=== PATIENT | male | born 1955 | race Caucasian/White ===

== ENCOUNTER 2017-12-18 20:25 | Emergency (ER) | payer MEDICAID, OTHER ==
[~2017-12-18] VITALS: Ht 167.6 cm; Wt 81.6 kg
--- NOTE | 2017-12-18 20:39 | NUR ---
PT AMBULATORY TO ER BED 9. BIBSELF C/O ABD PAIN WITH NAUSEA X 2 DAYS. DENIES V/D. PT PLACED IN GOWN AND ON MANAGER OF HOSPITAL. VSS/RESP EVEN UNLABORED/NAD NOTED/SKIN WARM AND DRY/AFEBRILE/AOX4. AWAITNG MD VORA.
--- NOTE | 2017-12-18 21:17 | NUR ---
URINE SPECIMEN OBTAINED AND SENT TO THE LAB.
[2017-12-18 21:19] LABS: BASOPHILS # (AUTO) 0.1 /CMM (0.0-0.2); BASOPHILS % (AUTO) 0.9 % (0.0-2.0); EOSINOPHILS % (AUTO) 1.7 % (0.0-6.0); HEMATOCRIT 47 % (39-51); HEMOGLOBIN 15.6 g/dL (13.5-17.5); LYMPHOCYTES # (AUTO) 4.5 /CMM (0.8-4.8); LYMPHOCYTES % (AUTO) 42.8 % (20.0-44.0); MEAN CORPUSCULAR HGB CONC 33 g/dl (31.0-36.0); MEAN CORPUSCULAR VOLUME 93 fL (80-96); MONOCYTES # (AUTO) 0.9 /CMM (0.1-1.30); MONOCYTES % (AUTO) 8.5 % (2.0-12.0); NEUTROPHILS # (AUTO) 4.8 /CMM (1.8-8.9); NEUTROPHILS % (AUTO) 46.1 % (43.0-81.0); PLATELET COUNT (AUTO) 225 /CMM (150-450); RED BLOOD CELL COUNT(AUTO) 5.08 MIL/uL (4.5-6.0); WHITE BLOOD COUNT (AUTO) 10.5 K/uL (4.3-11.0)
[2017-12-18 21:22] LABS: APPEARANCE,URINE Clear (CLEAR); BILIRUBIN,URINE Negative (NEGATIVE); BLOOD, URINE Moderate Ery/uL (NEGATIVE); COLOR,URINE Yellow (YELLOW); KETONES,URINE Trace (NEGATIVE); LEUKOCYTE ESTERASE ,URINE Negative (NEGATIVE); NITRITE, URINE Negative (NEGATIVE); PH,URINE 5.5 (5.0-8.0); PROTEIN,URINE 100 mg/dl (NEGATIVE); UGLUCOSE Negative (NEGATIVE); UROBILINOGEN,URINE 0.2 EU/dL (0.2)
[2017-12-18 21:26] LABS: CALCIUM, SERUM 8.9 mg/dL (8.5-10.1); CREATININE 0.7 mg/dL (0.6-1.3); POTASSIUM 4.1 mmol/L (3.5-5.1)
[2017-12-18 21:32] LABS: BACTERIA,URINE Few /HPF (None Seen); SQUAMOUS EPITHELIAL CELL,UR Few /HPF (None Seen); WBC,URINE 0-2 /HPF (0-3)
[2017-12-18 21:33] LABS: MUCUS,URINE Few /LPF (None Seen)
[2017-12-18 21:38] LABS: ALBUMIN 3.7 g/dL (3.4-5.0); BILIRUBIN,TOTAL 0.3 mg/dL (0.2-1.0); TOTAL PROTEIN, SERUM 3.6 g/dL (6.4-8.2)
[2017-12-18] MEDS ORDERED: MAG HYDROX/AL HYDROX/SIMETH 30 ML UDC ONE (22:14)
[2017-12-18] MEDS ORDERED: LIDOCAINE VISCOUS 2% UD 15 ML UDC ONE (22:14)
[2017-12-18] MEDS ORDERED: LIDOCAINE VISCOUS 2% UD 15 ML UDC MM ONE (22:30)
[2017-12-18] MEDS ORDERED: MAG HYDROX/AL HYDROX/SIMETH 30 ML UDC PO ONE (22:30)
--- NOTE | 2017-12-18 22:57 | NUR ---
Patient discharged to home in stable condition. Written and verbal after care instructions given. Patient verbalizes understanding of instruction. Patient ambulatory with a steady gait.
[2017-12-18 22:58] VITALS: BP 156/91
== END 2017-12-18 22:58 | disposition home or self-care (01) ==
LOC: ER 20:30
DX: K85.90 Acute pancreatitis without necrosis or infection, unspecified (principal); I10 Essential (primary) hypertension; J45.909 Unspecified asthma, uncomplicated; E11.9 Type 2 diabetes mellitus without complications; F17.210 Nicotine dependence, cigarettes, uncomplicated; Z98.890 Other specified postprocedural states
CPT/HCPCS: 36415; 76700-TC; 80048-TC; 80076-TC; 81000-TC; 83690-TC; 85025-TC; A4606; Z7610

== ENCOUNTER 2019-08-22 07:29 | Emergency (ER) | payer MEDICARE, OTHER ==
[~2019-08-22] VITALS: Ht 167.6 cm; Wt 84.4 kg
--- NOTE | 2019-08-22 07:38 | NUR ---
DR BLACKWELL AT BEDSIDE FOR EVAL
--- NOTE | 2019-08-22 07:41 | NUR ---
MIGDALIA RN,[facility] CALLED TO INTERPRET FOR MD
[2019-08-22] MEDS ORDERED: PHENYLEPHRINE 0.5% NASAL SPRAY 15 ML BOTTLE NS ONE (07:48)
--- NOTE | 2019-08-22 07:50 | NUR ---
patient came in to the er c/o on and off nosebleed. On room air, breathing evenly and unlabored. kept comfortable, will continue to monitor accordingly.
[2019-08-22 07:58] VITALS: BP 135/80
--- NOTE | 2019-08-22 07:58 | NUR ---
Patient discharged to home in stable condition. Written and verbal after care instructions given. Patient verbalizes understanding of instruction.
[2019-08-22] MEDS ORDERED: PHENYLEPHRINE HCL NASAL SPRAY 15 ML BOTTLE NS ONE (08:00)
== END 2019-08-22 07:58 | disposition home or self-care (01) ==
LOC: ER 07:32
DX: R04.0 Epistaxis (principal); T50.905A Adverse effect of unspecified drugs, medicaments and biological substances, initial encounter; I10 Essential (primary) hypertension; J45.909 Unspecified asthma, uncomplicated; E11.9 Type 2 diabetes mellitus without complications; E78.00 Pure hypercholesterolemia, unspecified; F17.200 Nicotine dependence, unspecified, uncomplicated; Z98.890 Other specified postprocedural states; Y92.89 Other specified places as the place of occurrence of the external cause

== ENCOUNTER 2019-08-22 18:41 | Emergency (ER) | payer MEDICARE, OTHER ==
[~2019-08-22] VITALS: Ht 167.6 cm; Wt 84.4 kg
[2019-08-22 19:02] VITALS: BP 111/68
--- NOTE | 2019-08-22 19:12 | NUR ---
PT REFUSED NASAL SPRAY.
[2019-08-22 19:51] LABS: BASOPHILS # (AUTO) 0.1 /CMM (0.0-0.2); BASOPHILS % (AUTO) 0.6 % (0.0-2.0); EOSINOPHILS % (AUTO) 1.3 % (0.0-6.0); HEMATOCRIT 40 % (39-51); HEMOGLOBIN 13.5 g/dL (13.5-17.5); LYMPHOCYTES # (AUTO) 4.2 /CMM (0.8-4.8); LYMPHOCYTES % (AUTO) 38.8 % (20.0-44.0); MEAN CORPUSCULAR HGB CONC 34 g/dl (31.0-36.0); MEAN CORPUSCULAR VOLUME 93 fL (80-96); MONOCYTES # (AUTO) 0.8 /CMM (0.1-1.30); MONOCYTES % (AUTO) 7.1 % (2.0-12.0); NEUTROPHILS # (AUTO) 5.6 /CMM (1.8-8.9); NEUTROPHILS % (AUTO) 52.2 % (43.0-81.0); PLATELET COUNT (AUTO) 199 /CMM (150-450); RED BLOOD CELL COUNT(AUTO) 4.26 MIL/uL (4.5-6.0); WHITE BLOOD COUNT (AUTO) 10.7 K/uL (4.3-11.0)
[2019-08-22] MEDS ORDERED: OXYMETAZOLINE HCL NASAL SPRAY 30 ML BOTTLE NS ONE (20:00)
== END 2019-08-22 20:50 | disposition home or self-care (01) ==
LOC: ER 18:50
DX: R04.0 Epistaxis (principal); I10 Essential (primary) hypertension; E11.9 Type 2 diabetes mellitus without complications; J45.909 Unspecified asthma, uncomplicated; F17.210 Nicotine dependence, cigarettes, uncomplicated; Z95.828 Presence of other vascular implants and grafts
CPT/HCPCS: 36415; 85025-TC; 85730-TC

== ENCOUNTER 2023-01-05 07:23 | Inpatient (IN) | payer MEDICARE, OTHER ==
[~2023-01-05] VITALS: Ht 167.6 cm; Wt 78.9 kg
[2023-01-05 08:26] LABS: BASOPHILS # (AUTO) 0.1 K/uL (0.0-0.2); BASOPHILS % (AUTO) 0.6 % (0.0-2.0); EOSINOPHILS # (AUTO) 0.1 K/uL (0.0-0.7); EOSINOPHILS % (AUTO) 1.1 % (0.0-6.0); HEMATOCRIT 42 % (39-51); LYMPHOCYTES % (AUTO) 27.2 % (20.0-44.0); MEAN CORPUSCULAR HEMOGLOBIN 30 PG (26.0-33.0); MEAN CORPUSCULAR HGB CONC 33 g/dl (31.0-36.0); MEAN CORPUSCULAR VOLUME 91 fL (80-96); MONOCYTES % (AUTO) 9.1 % (2.0-12.0); NEUTROPHILS # (AUTO) 6.8 K/uL (1.8-8.9); PLATELET COUNT (AUTO) 208 K/uL (150-450); RED BLOOD CELL COUNT(AUTO) 4.66 MIL/uL (4.5-6.0); RED CELL DISTRIBUTION WIDTH 13.6 % (11.5-15.0)
[2023-01-05 08:34] LABS: CALCIUM, SERUM 9.4 mg/dL (8.5-10.1); CREATININE 0.8 mg/dL (0.6-1.3); POTASSIUM 3.8 mmol/L (3.5-5.1)
[2023-01-05 08:47] LABS: INR 1.08 (0.91-1.10); PARTIAL THROMBOPLASTIN TIME 32.5 SEC (24.3-34.3); PROTHROMBIN TIME 11.4 SECS (9.2-11.1)
[2023-01-05] MEDS ORDERED: CT SWABBABLE VALVE TRANS SET 1 EA INFUS.SET MC ONE (08:53)
[2023-01-05] MEDS ORDERED: IOHEXOL-300 100 ML VIAL IV ONE (08:53)
[2023-01-05] MEDS ORDERED: IV NS 0.9% 250 ML IV ONE (08:54)
[2023-01-05] MEDS ORDERED: PIPERACILLIN /TAZOBACTAM 3.375 G in IV D5W 50 ML IV ONE (10:00)
[2023-01-05] MEDS ORDERED: EMPA10TA PO (10:18)
[2023-01-05] MEDS ORDERED: METF-440 PO (10:18)
[2023-01-05] MEDS ORDERED: CHOL500052 PO (10:18)
[2023-01-05] MEDS ORDERED: TAMS-12 PO (10:18)
[2023-01-05] MEDS ORDERED: CARV3.12 PO (10:18)
[2023-01-05] MEDS ORDERED: CLOP75TA15 PO (10:18)
[2023-01-05] MEDS ORDERED: PANT40TA2 PO (10:18)
[2023-01-05] MEDS ORDERED: BENA20TA9 PO (10:18)
[2023-01-05] MEDS ORDERED: ROSU10TA2 PO (10:18)
[2023-01-05] MEDS ORDERED: PIPERACI/TAZO 3.375GM/D5W 50ML PB IV ONE (10:59)
[2023-01-05] MEDS ORDERED: Z GUARD REMEDY 4 OZ OINT TP PRN (11:30)
[2023-01-05] MEDS ORDERED: MORPHINE SULFATE INJ 2 MG/ML DISP.SYRIN IV PRN (11:30)
[2023-01-05] MEDS ORDERED: ACETAMINOPHEN 325 MG TABLET PO PRN (11:30)
[2023-01-05] MEDS ORDERED: ZOLPIDEM TARTRATE 5 MG TABLET PO PRN (11:30)
[2023-01-05] MEDS ORDERED: MAG HYDROX/AL HYDROX/SIMETH 30 ML UDC PO PRN (11:30)
[2023-01-05] MEDS ORDERED: MAGNESIUM HYDROXIDE 30 ML UDC PO PRN (11:30)
[2023-01-05] MEDS ORDERED: ONDANSETRON HCL/PF 4 MG/2 ML VIAL IVP PRN (11:30)
[2023-01-05] MEDS ORDERED: HYDROCODONE/APAP 5/325MG TABLET PO PRN (11:30)
[2023-01-05 12:00] VITALS: BP 129/68; TEMP 97.9; O2SAT 98
[2023-01-05] MEDS: ZOSYN IVPB 3.375 G in IV D5W 50ml IV SCH ×2 (15:16→22:35)
[2023-01-05 16:00] VITALS: BP 116/72; TEMP 97.9; O2SAT 98
[2023-01-05] MEDS ORDERED: INSULIN REGULAR, HUMAN 100 UNIT/ML 3 ML VIAL SQ PRN (19:00)
[2023-01-05] MEDS ORDERED: *INSULIN REGULAR(HUMULIN R)HUM 100 UNIT/ML VIAL SQ PRN (19:00)
[2023-01-05] MEDS ORDERED: DEXTROSE 50%-WATER 50 ML DISP.SYRIN IV PRN (19:00)
[2023-01-05] MEDS ORDERED: ATORVASTATIN 10 MG TABLET PO SCH (22:00)
[2023-01-05] MEDS: BLOOD SUGAR DIAGNOSTIC 1 EACH STRIP VI SCH (22:53)
[2023-01-06 00:11] VITALS: BP 117/63; TEMP 99; O2SAT 93
[2023-01-06] MEDS: ZOSYN IVPB 3.375 G in IV D5W 50ml IV SCH ×2 (04:12→09:03)
[2023-01-06 07:24] LABS: CALCIUM, SERUM 9.3 mg/dL (8.5-10.1); PHOSPHORUS 3.4 mg/dL (2.5-4.9)
[2023-01-06] MEDS ORDERED: PANTOPRAZOLE 40 MG TABLET.DR PO SCH (07:30)
[2023-01-06 07:43] LABS: BASOPHILS # (AUTO) 0.1 K/uL (0.0-0.2); BASOPHILS % (AUTO) 0.5 % (0.0-2.0); EOSINOPHILS # (AUTO) 0.1 K/uL (0.0-0.7); EOSINOPHILS % (AUTO) 0.9 % (0.0-6.0); HEMATOCRIT 43 % (39-51); LYMPHOCYTES # (AUTO) 3.4 K/uL (0.8-4.8); MEAN CORPUSCULAR HEMOGLOBIN 30 PG (26.0-33.0); MEAN CORPUSCULAR HGB CONC 33 g/dl (31.0-36.0); MEAN CORPUSCULAR VOLUME 92 fL (80-96); MONOCYTES # (AUTO) 1.1 K/uL (0.1-1.30); MONOCYTES % (AUTO) 8.4 % (2.0-12.0); NEUTROPHILS % (AUTO) 63.2 % (43.0-81.0); PLATELET COUNT (AUTO) 225 K/uL (150-450); RED BLOOD CELL COUNT(AUTO) 4.61 MIL/uL (4.5-6.0); RED CELL DISTRIBUTION WIDTH 13.4 % (11.5-15.0); WHITE BLOOD COUNT (AUTO) 12.7 K/uL (4.3-11.0)
[2023-01-06] MEDS: BLOOD SUGAR DIAGNOSTIC 1 EACH STRIP VI SCH ×2 (08:14→11:31)
[2023-01-06 08:57] VITALS: BP 130/75; TEMP 98.1; O2SAT 93
[2023-01-06] MEDS ORDERED: CARVEDILOL 3.125 MG TABLET PO SCH (09:00)
[2023-01-06] MEDS ORDERED: CLOPIDOGREL BISULFATE 75 MG TABLET PO SCH (09:00)
[2023-01-06] MEDS ORDERED: Medication Not On Formulary EA (Empagliflozin (Jardiance) 10 MG) PO SCH (09:00)
[2023-01-06] MEDS ORDERED: BENAZEPRIL HCL 20 MG TABLET PO SCH (09:00)
[2023-01-06] MEDS ORDERED: TAMSULOSIN 0.4 MG CAP.SR.24H PO SCH (09:00)
[2023-01-07] MEDS ORDERED: ERGOCALCIFEROL (VITAMIN D 2) 50,000 UNIT CAPSULE GT SCH (09:00)
== END 2023-01-06 12:31 | disposition home or self-care (01) | DRG 394 ==
LOC: ER 07:29 → MEDSG1 11:25
PROVIDERS: ADMIT Student in an Organized Health Care Education/Training Program; ATTEND Nurse Practitioner Acute Care
DX: K64.4 Residual hemorrhoidal skin tags (principal); K61.0 Anal abscess; I10 Essential (primary) hypertension; C21.0 Malignant neoplasm of anus, unspecified; J45.909 Unspecified asthma, uncomplicated; E11.9 Type 2 diabetes mellitus without complications; E78.5 Hyperlipidemia, unspecified; Z79.84 Long term (current) use of oral hypoglycemic drugs; Z87.11 Personal history of peptic ulcer disease; Z87.891 Personal history of nicotine dependence
CPT/HCPCS: 36415; 72193-TC; 80048-TC; 82962-TC; 83735-TC; 84100-TC; 85025-TC; 85730-TC; A4223; G0378; J1815; J2543; J7040; J7050; J7060; Q9967

== ENCOUNTER 2023-10-31 15:49 | Inpatient (IN) | payer MEDICARE, OTHER ==
[~2023-10-31] VITALS: Ht 172.7 cm; Wt 78.9 kg
[~2023-10-31 15:49] MED LIST: BENA20TA9 PO; CARV3.12 PO; CHOL500052 PO; CLOP75TA15 PO; EMPA10TA PO; METF-440 PO; PANT40TA2 PO; ROSU10TA2 PO; TAMS-12 PO
--- NOTE | 2023-10-31 16:20 | NUR ---
RECEIVED PT 68 YRS MALE WAKING IN FROM HOME C/O DIZZNESS AND WEEKNESS ON RT SIDE AND RESOVE DINESS ANY WEEKNESS
--- NOTE | 2023-10-31 16:30 | NUR ---
SEEN BY DR. BALTAZAR
[2023-10-31 16:33] LABS: BASOPHILS # (AUTO) 0.1 K/uL (0.0-0.2); BASOPHILS % (AUTO) 0.9 % (0.0-2.0); EOSINOPHILS # (AUTO) 0.2 K/uL (0.0-0.7); EOSINOPHILS % (AUTO) 1.9 % (0.0-6.0); HEMATOCRIT 41 % (39-51); HEMOGLOBIN 13.6 g/dL (13.5-17.5); LYMPHOCYTES % (AUTO) 33.7 % (20.0-44.0); MEAN CORPUSCULAR HEMOGLOBIN 31 PG (26.0-33.0); MEAN CORPUSCULAR HGB CONC 34 g/dl (31.0-36.0); MEAN CORPUSCULAR VOLUME 91 fL (80-96); MONOCYTES # (AUTO) 0.7 K/uL (0.1-1.30); MONOCYTES % (AUTO) 7.6 % (2.0-12.0); NEUTROPHILS # (AUTO) 4.9 K/uL (1.8-8.9); NEUTROPHILS % (AUTO) 55.9 % (43.0-81.0); PLATELET COUNT (AUTO) 191 K/uL (150-450); RED BLOOD CELL COUNT(AUTO) 4.43 MIL/uL (4.5-6.0); RED CELL DISTRIBUTION WIDTH 14.3 % (11.5-15.0); WHITE BLOOD COUNT (AUTO) 8.8 K/uL (4.3-11.0)
[2023-10-31 16:41] LABS: MAGNESIUM 1.5 mg/dL (1.8-2.4)
[2023-10-31 16:42] LABS: CARBON DIOXIDE 25 mmol/L (21-32); CHLORIDE 103 mmol/L (98-107); CREATININE 0.8 mg/dL (0.6-1.3); GLUCOSE 186 mg/dL (74-106); POTASSIUM 4.2 mmol/L (3.5-5.1); SODIUM SERUM 137 mmol/L (136-145); UREA NITROGEN, BLOOD 11 mg/dL (7-18)
--- NOTE | 2023-10-31 16:45 | NUR ---
BLOOD DROW BY DR. BALTAZAR
[2023-10-31 16:48] LABS: ALANINE AMINOTRANSFERASE 23 U/L (12-78); ALBUMIN 3.4 g/dL (3.4-5.0); ALKALINE PHOSPHATASE 63 U/L (46-116); ASPARTATE AMINOTRANSFERASE 10 U/L (15-37); BILIRUBIN,DIRECT 0.1 mg/dL (0.0-0.2); BILIRUBIN,TOTAL 0.4 mg/dL (0.2-1.0); TOTAL PROTEIN, SERUM 7.3 g/dL (6.4-8.2)
--- NOTE | 2023-10-31 16:55 | NUR ---
18g Established in the LAC
[2023-10-31 16:58] LABS: THYROID STIMULATING HORMONE 0.53 uIU/mL (0.358-3.74)
[2023-10-31 17:26] LABS: INR 1.08 (0.91-1.10); PROTHROMBIN TIME 11.4 SECS (9.2-11.1)
--- NOTE | 2023-10-31 17:33 | NUR ---
MOVE SHEET SUBMITTED & CALLED FOR BED.
--- NOTE | 2023-10-31 18:10 | NUR ---
TO ORLANDO BAUTISTA
[2023-10-31] MEDS ORDERED: CT SWABBABLE VALVE TRANS SET 1 EA INFUS.SET MC ONE (18:16)
[2023-10-31] MEDS ORDERED: IOHEXOL-350 100 ML VIAL IV ONE (18:16)
[2023-10-31] MEDS ORDERED: IV NS 0.9% 250 ML IV ONE (18:16)
--- NOTE | 2023-10-31 18:36 | NUR ---
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
[2023-10-31] MEDS ORDERED: HYDROCODONE/APAP 5/325MG TABLET PO PRN (19:00)
[2023-10-31] MEDS ORDERED: DEXTROSE 50%-WATER 50 ML DISP.SYRIN IV PRN (19:00)
--- NOTE | 2023-10-31 19:00 | NUR ---
UA SENT TO LAB
[2023-10-31 19:22] LABS: AMPHETAMINE, URINE NEGATIVE (NEGATIVE); BARBITURATE, URINE NEGATIVE (NEGATIVE); BENZODIAZEPINE, URINE NEGATIVE (NEGATIVE); CANNABINOID, URINE NEGATIVE (NEGATIVE); COCCAINE, URINE NEGATIVE (NEGATIVE); OPIATE, URINE NEGATIVE (NEGATIVE); PHENCYCLIDINE SCREEN,URINE NEGATIVE (NEGATIVE)
[2023-10-31] MEDS ORDERED: ENOXAPARIN SODIUM 40 MG/0.4 ML DISP.SYRIN SQ ONE (19:28)
[2023-10-31] MEDS: ENOXAPARIN SODIUM 40 MG/0.4 ML DISP.SYRIN SQ SCH (19:31)
--- NOTE | 2023-10-31 19:38 | NUR ---
HAND OFF MARTY RN
[2023-10-31 19:44] LABS: APPEARANCE,URINE CLEAR (CLEAR); COLOR,URINE YELLOW (YELLOW)
[2023-10-31 19:45] LABS: BILIRUBIN,URINE NEGATIVE (NEGATIVE); BLOOD, URINE NEGATIVE Ery/uL (NEGATIVE); KETONES,URINE NEGATIVE (NEGATIVE); NITRITE, URINE NEGATIVE (NEGATIVE); UGLUCOSE >=2000 MG/DL mg/dL (NEGATIVE); UROBILINOGEN,URINE 0.2 EU/dL (0.2)
[2023-10-31 19:46] LABS: ADD URINE CULTURE NO; BACTERIA,URINE None seen /HPF (None Seen); LEUKOCYTE ESTERASE ,URINE NEGATIVE (NEGATIVE); RBC,URINE 0-2 /HPF (0-2); WBC,URINE 0-2 /HPF (0-3)
[2023-10-31 19:47] LABS: PROTEIN,URINE 1+ mg/dl (NEGATIVE); YEAST,URINE Few /HPF (None Seen)
--- NOTE | 2023-10-31 19:56 | NUR ---
REPORT GIVEN TO JIM BAILEY FOR S[facility]AGE
[2023-10-31 20:10] VITALS: BP 133/65; TEMP 97.9; O2SAT 96
--- NOTE | 2023-10-31 20:13 | NUR ---
pt transported to [facility] via gurney with acls protocol.
--- NOTE | 2023-10-31 20:15 | NUR ---
DETECTIVE AUTOMOBILE SECTIONSEAT MENDER NOTES; RECEIVED PATIENT FROM ER VIA [facility] WITH HIS SISTER. REPORT GIVEN BY LEO FERGUSON. PATIENT IS A/O X4, ABLE TO MAKE NEEDS KNOWN. PATIENT ORIENTED TO ROOM AND SHOW HIM HOW TO USE CALL LIGHT. ON ROOM AIR, TOLERATING WELL BREATHES EVENLY AND UNLABORED. NO SOB/ NOR S/SX OF ACUTE DISTRESS AT THIS TIME. ALL BELONGINGS ACCOUNTED FOR, BELONGING SHEET SIGNED. IV ACCESS ON LAC #18G-SL, INTACT AND PATENT. VS TAKEN FOLLOWS; BP 133/65, CT 62, RR 18, TEMP 97.6, SPO2 96%. SKIN WERE INTACT, NO RASHES, IRRITATION NOR EDEMA NOTED. LUNGS WERE CLEAR BILATERALLY UPON AUSCULTATION. NORMOACTIVE BOWEL SOUNDS. NO COMPLAINTS OF PAIN/DISCOMFORT AT THE MOMENT. MAINTAIN ALL SAFETY MEASURES IN PLACE; BED IN LOWEST AND LOCKED POSITION, BED ALARM ON, SIDE RAILS UPX2, CALL LIGHT AND TABLE TRAY WITHIN EASY REACH. PLAN OF CARE ONGOING.
[2023-10-31] MEDS ORDERED: Magnesium 1GM/D5W 100ML PREMIX 100 ML IV ONE (21:16)
[2023-10-31] MEDS: Magnesium 1GM/D5W 100ML PREMIX PIGGYBACK IV ONE (21:17)
[2023-10-31] MEDS: BLOOD SUGAR DIAGNOSTIC 1 EACH STRIP IN SCH (21:40)
[2023-10-31] MEDS: INSULIN REGULAR, HUMAN 100 UNIT/ML 3 ML VIAL SQ PRN (21:56)
--- NOTE | 2023-10-31 21:57 | NUR ---
RN NOTE; PATIENT REFUSED INSULIN DESPITE DISCUSSING WITH HIM THE RISK AND BENEFITS.
[2023-10-31] MEDS: ATORVASTATIN 40 MG TABLET PO SCH (21:58)
[2023-10-31 23:09] VITALS: BP 133/65; TEMP 97.9; O2SAT 96
[2023-11-01] VITALS: BP 119/69; TEMP 97.7; TEMP 97.9; O2SAT 94; O2SAT 96
[2023-11-01 04:00] VITALS: BP 125/61; TEMP 98.8; O2SAT 100
[2023-11-01 06:03] LABS: BASOPHILS # (AUTO) 0.1 K/uL (0.0-0.2); BASOPHILS % (AUTO) 0.9 % (0.0-2.0); EOSINOPHILS # (AUTO) 0.2 K/uL (0.0-0.7); EOSINOPHILS % (AUTO) 2.5 % (0.0-6.0); HEMATOCRIT 41 % (39-51); HEMOGLOBIN 13.7 g/dL (13.5-17.5); LYMPHOCYTES # (AUTO) 3.6 K/uL (0.8-4.8); LYMPHOCYTES % (AUTO) 42.9 % (20.0-44.0); MEAN CORPUSCULAR HEMOGLOBIN 31 PG (26.0-33.0); MEAN CORPUSCULAR HGB CONC 33 g/dl (31.0-36.0); MEAN CORPUSCULAR VOLUME 91 fL (80-96); MONOCYTES # (AUTO) 0.6 K/uL (0.1-1.30); MONOCYTES % (AUTO) 7.6 % (2.0-12.0); NEUTROPHILS # (AUTO) 3.8 K/uL (1.8-8.9); NEUTROPHILS % (AUTO) 46.1 % (43.0-81.0); PLATELET COUNT (AUTO) 192 K/uL (150-450); RED BLOOD CELL COUNT(AUTO) 4.48 MIL/uL (4.5-6.0); RED CELL DISTRIBUTION WIDTH 13.9 % (11.5-15.0); WHITE BLOOD COUNT (AUTO) 8.3 K/uL (4.3-11.0)
[2023-11-01 06:26] LABS: CALCIUM, SERUM 9.1 mg/dL (8.5-10.1); CREATININE 0.7 mg/dL (0.6-1.3); MAGNESIUM 1.9 mg/dL (1.8-2.4)
[2023-11-01 06:31] LABS: INR 1.08 (0.91-1.10); PARTIAL THROMBOPLASTIN TIME 28.1 SEC (24.3-34.3); PROTHROMBIN TIME 11.4 SECS (9.2-11.1)
--- NOTE | 2023-11-01 06:46 | NUR ---
CRISIS INTERVENTION COUNSELOR CLOSING NOTES; 328-1 LEFT PATIENT RESTING ON BED AWAKE. A/O X4, ABLE TO MAKE NEEDS KNOWN. STABLE THROUGHOUT SHIFT ON RA, TOLERATING WELL @ 100 % SPO2 BREATHES EVENLY AND UNLABORED. NO SOB/ NOR S/SX OF ACUTE DISTRESS AT THIS TIME. IV ACCESS ON LAC #18G-SL, INTACT AND PATENT. ON CONTINUOUS TELE MONITORING WITH CURRENT READING OF SR @ 63 BPM. NO COMPLAINTS OF PAIN/DISCOMFORT AT THE MOMENT. ALL NURSING CARE AND NEEDS ANTICIPATED AND MET, ALL DUE MEDS GIVEN ORDERED. MAINTAIN ALL SAFETY MEASURES IN PLACE; BED IN LOWEST AND LOCKED POSITION, BED ALARM ON, SIDE RAILS UPX2, CALL LIGHT AND TABLE TRAY WITHIN EASY REACH. PLAN OF CARE ONGOING, ENDORSE TO AM SHIFT NURSE FOR S[facility]AGE.
--- NOTE | 2023-11-01 07:29 | NUR ---
OPENING NOTES RECEIVED PATIENT AWAKE ON BED, A/O X4, ABLE TO MAKE NEEDS KNOWN. ON RA, TOLERATING WELL @ 100 % SPO2 BREATHING EVEN AND UNLABORED. NO SOB/ NOR S/SX OF ACUTE DISTRESS AT THIS TIME. IV ACCESS ON LAC #18G-SL, INTACT AND PATENT. ON CONTINUOUS TELE MONITORING WITH CURRENT READING OF SR HR 74 BPM. NO COMPLAINTS OF PAIN/DISCOMFORT AT THE MOMENT. SAFETY MEASURES IN PLACE; BED IN LOWEST AND LOCKED POSITION, BED ALARM ON, SIDE RAILS UPX2, CALL LIGHT AND TABLE TRAY WITHIN EASY REACH. PLAN OF CARE ONGOING
[2023-11-01 07:30] VITALS: BP 136/67; TEMP 97.8; O2SAT 95
[2023-11-01] MEDS ORDERED: METFORMIN 500 MG TABLET PO SCH (09:00)
[2023-11-01] MEDS: NICOTINE PATCH (21MG) 21 MG PATCH.TD24 TD SCH (09:00)
[2023-11-01] MEDS: EMPAGLIFLOZIN 10 MG TABLET PO SCH (09:00)
[2023-11-01] MEDS: CARVEDILOL 3.125 MG TABLET PO SCH (09:24)
[2023-11-01] MEDS: CLOPIDOGREL BISULFATE 75 MG TABLET PO SCH (09:25)
[2023-11-01] MEDS: PANTOPRAZOLE 40 MG TABLET.DR PO SCH (09:25)
[2023-11-01] MEDS: TAMSULOSIN 0.4 MG CAP.SR.24H PO SCH (09:25)
[2023-11-01] MEDS: BENAZEPRIL HCL 20 MG TABLET PO SCH (09:25)
--- NOTE | 2023-11-01 10:30 | NUR ---
RN NOTE PATIENT REFUSED JARDIANCE, EXPLAINED THE BENEFITS OF MEDICATION BUT PATIENT STILL REFUSED, OFFERED 3X. PLAN OF CARE ONGOING
[2023-11-01 10:47] LABS: THYROID STIMULATING HORMONE 0.45 uIU/mL (0.358-3.74)
--- NOTE | 2023-11-01 11:36 | NUR ---
RN NOTE BLOOD SUGAR LEVEL 193 MG/DL, PATIENT REFUSED INSULIN COVERAGE SINCE HE JUST ATE, EDUCATE ABOUT BENEFITS OF MEDICATION, PATIENT STILL REFUSED. PLAN OF CARE ONGOING
[2023-11-01] MEDS: ASPIRIN 81 MG TAB.CHEW PO SCH (12:25)
[2023-11-01 16:00] VITALS: BP 130/67; TEMP 97.5; O2SAT 98
--- NOTE | 2023-11-01 17:00 | NUR ---
RN NOTE BLOOD SUGAR CHECK 171, REFUSED INSLUIN, EDUCATE ABOUT IMPORTANCE OF MEDICATION, PATIENT STILL REFUSED. PLAN OF CARE ONGOING
--- NOTE | 2023-11-01 19:30 | NUR ---
CLOSING NOTES PATIENT AWAKE ON BED, A/O X4, ABLE TO MAKE NEEDS KNOWN. ON RA, TOLERATING WELL @ 100 % SPO2 BREATHING EVEN AND UNLABORED. NO SOB/ NOR S/SX OF ACUTE DISTRESS AT THIS TIME. IV ACCESS ON LAC #18G-SL, INTACT AND PATENT. ON CONTINUOUS TELE MONITORING WITH CURRENT READING OF SR HR 71- 74 BPM. NO COMPLAINTS OF PAIN/DISCOMFORT AT THE MOMENT. SKIN CARE IMPLEMENTED. SAFETY MEASURES IN PLACE; BED IN LOWEST AND LOCKED POSITION, BED ALARM ON, SIDE RAILS UPX2, CALL LIGHT AND TABLE TRAY WITHIN EASY REACH. ENDORSE PLAN OF CARE TO ARCHITECTURE INSTRUCTOR NURSE
--- NOTE | 2023-11-01 19:35 | NUR ---
RN NOTES: RECEIVED PATIENT AWAKE ON BED, A/O X4, ABLE TO MAKE NEEDS KNOWN. ON RA, TOLERATING WELL @ 100 % SPO2 BREATHING EVEN AND UNLABORED. NO SOB/ NOR S/SX OF ACUTE DISTRESS AT THIS TIME. WITH PATENT IV ACCESS ON LAC #18G-SL, ON CONTINUOUS TELE MONITORING WITH CURRENT READING OF SR HR 76 BPM. NO COMPLAINTS OF PAIN/DISCOMFORT AT THE MOMENT. SAFETY MEASURES IN PLACE; BED IN LOWEST AND LOCKED POSITION, BED ALARM ON, SIDE RAILS UPX2, CALL LIGHT AND TABLE TRAY WITHIN EASY REACH. WILL CONTINUE TO MONITOR
[2023-11-01 20:00] VITALS: BP 114/53; TEMP 98.1; O2SAT 96
--- NOTE | 2023-11-01 22:00 | NUR ---
RN NOTES: BLOOD SUGAR CHECKED 161 MG/DL. REFUSED INSULIN. PATIENT EDUCATED ABOUT IMPORTANCE OF MEDICATION. BUT STILL REFUSED. WILL CONTINUE TO MONITOR
[2023-11-02] VITALS: BP 132/64; TEMP 98.2; O2SAT 98
[2023-11-02 04:00] VITALS: BP 127/65; TEMP 97.7; O2SAT 95
--- NOTE | 2023-11-02 06:35 | NUR ---
RN NOTES: BLOOD SUGAR CHECKED 196MG/DL. REFUSED INSULIN. PATIENT EDUCATED ABOUT IMPORTANCE OF MEDICATION. BUT STILL REFUSED. WILL CONTINUE TO MONITOR
--- NOTE | 2023-11-02 06:58 | NUR ---
RN CLOSING NOTES PATIENT ASLEEP ON BED, A/O X4, EASILY AROUSED. ABLE TO MAKE NEEDS KNOWN. ON RA, TOLERATING WELL @ 97% SPO2 BREATHING EVEN AND UNLABORED. NO SOB/ NOR S/SX OF ACUTE DISTRESS AT THIS TIME. WITH PATENT IV ACCESS ON LAC #18G-SL, ON CONTINUOUS TELE MONITORING WITH CURRENT READING OF SR 67 BPM. NO COMPLAINTS OF PAIN/DISCOMFORT AT THE MOMENT. ALL DUE MEDICATIONS GIVEN. KEPT CLEAN AND COMFORTABLE. SAFETY MEASURES IN PLACE; BED IN LOWEST AND LOCKED POSITION, BED ALARM ON, SIDE RAILS UP X 2, CALL LIGHT AND TABLE TRAY WITHIN EASY REACH. WILL ENDORSE TO NEXT SHIFT FOR FURTHER CARE.
--- NOTE | 2023-11-02 07:32 | NUR ---
TELE OPENING NOTES RECEIVED PATIENT AWAKE ON BED, A/O X4, ABLE TO MAKE NEEDS KNOWN. ON ROOM AIR, BREATHING EVEN AND UNLABORED. NO SOB/ NOR S/SX OF ACUTE DISTRESS AT THIS TIME. IV ACCESS ON LAC #18G-SL, INTACT AND PATENT. ON CONTINUOUS TELE MONITORING WITH CURRENT READING OF SINUS RHYTHM HR 79-80 BPM. NO COMPLAINTS OF PAIN/DISCOMFORT AT THE MOMENT, VERBALIZES HE WANTS TO GO HOME. EDUCATE PATIENT WE ARE STILL WAITING FOR UPDATES FROM VASCULAR DOCTOR AND DR TERRY, PATIENT VERBALIZED UNDERSTANDING. SAFETY MEASURES IN PLACE; BED IN LOWEST AND LOCKED POSITION, BED ALARM ON, SIDE RAILS UPX2, CALL LIGHT AND TABLE TRAY WITHIN EASY REACH. PLAN OF CARE ONGOING
[2023-11-02 08:23] VITALS: BP 118/56; TEMP 97.5; O2SAT 99
[2023-11-02 08:25] VITALS: BP 118/56
[2023-11-02] MEDS: ERGOCALCIFEROL (VITAMIN D 2) 50,000 UNIT CAPSULE PO SCH (08:28)
--- NOTE | 2023-11-02 11:24 | NUR ---
RN NOTE CALLED [facility] VIA [phone] AND WAS ADVISED THAT GRACE WILL JUST CALLBACK. CALLBACK NUMBER PROVIDED
--- NOTE | 2023-11-02 11:44 | NUR ---
RN NOTE BLOOD SUGAR CHECK 235 REFUSED INSLUIN, EDUCATE ABOUT IMPORTANCE OF MEDICATION, PATIENT STILL REFUSED. PLAN OF CARE ONGOING
--- NOTE | 2023-11-02 14:00 | NUR ---
RN NOTE SHALINI BETHEA CALLED, REPORT GIVEN TO AYESHA BAILEY
--- NOTE | 2023-11-02 15:10 | NUR ---
DISCHARGE NOTES PATIENT TRANSFERRED TO [facility] ORDERED. PATIENT IS A/O X 2. ON ROOM AIR, BREATHING EVEN AND UNLABORED WITH O2 SATURATION OF 95%, NO ACUTE RESPIRATORY DISTRESS NOTED. VITAL SIGNS CHECKED, SKIN INTACT. BELONGINGS LIST CHECKED AND SIGNED BY PATIENT. DISCHARGE INSTRUCTIONS WERE GIVEN TO THE PATIENT AND VERBALIZED UNDERSTANDING. IV LINE LAC #18G INTACT, PATENT AND FLUSHING WELL. NAME ARM BAND REMOVED, EXTERNAL DAIRY MANAGER REMOVED AND RETURNED TO TELE DESK. PATIENT LEFT THE UNIT VIA GURNEY WITH NO SIGNS OF DISTRESS ACCOMPANIED BY 2 MUTUEL CLERK. CHARGE NURSE ESTHER, AWARE OF DISCHARGE
[2023-11-03 08:09] LABS: FOLIC ACID 14.9 ng/mL (>3.0)
[2023-11-03] MEDS ORDERED: METFORMIN 500 MG TABLET PO SCH (09:00)
--- NOTE | 2023-11-03 10:06 | NUR ---
fast foods worker note: fast foods worker consultation requested for stroke patient has been discharged.
== END 2023-11-02 15:00 | disposition short-term general hospital (02) | DRG 68 ==
LOC: ER 16:15 → TELE 18:39
PROVIDERS: ADMIT Nurse Practitioner Acute Care; ATTEND Nurse Practitioner Acute Care
DX: I65.1 Occlusion and stenosis of basilar artery (principal); E78.5 Hyperlipidemia, unspecified; E83.42 Hypomagnesemia; Z79.02 Long term (current) use of antithrombotics/antiplatelets; Z79.84 Long term (current) use of oral hypoglycemic drugs; Z79.899 Other long term (current) drug therapy; Z86.73 Personal history of transient ischemic attack (TIA), and cerebral infarction without residual deficits; R20.0 Anesthesia of skin; R53.1 Weakness; I10 Essential (primary) hypertension; E11.9 Type 2 diabetes mellitus without complications; N40.0 Benign prostatic hyperplasia without lower urinary tract symptoms; F17.210 Nicotine dependence, cigarettes, uncomplicated; I72.5 Aneurysm of other precerebral arteries; H53.2 Diplopia; R29.700 NIHSS score 0; E11.51 Type 2 diabetes mellitus with diabetic peripheral angiopathy without gangrene
CPT/HCPCS: 36415; 70496-TC; 70498-TC; 71045-TC; 80048-TC; 80061-TC; 80076-TC; 81001; 82607-TC; 82962-TC; 83735-TC; 83921; 84425; 84439-TC; 84443-TC; 84484-TC; 85025-TC; 85730-TC; 92521; 92526; 92611-TC; 97110-TC; 97116-TC; 97530-TC; 97535-TC; A4223; G0378; J1650; J1815; J3475; J7050; Q9967